=== PATIENT | male | born 1970 | race Caucasian/White ===

== ENCOUNTER 2019-06-11 19:08 | Emergency (ER) | payer BC, MEDICARE ==
[2019-06-11] MEDS ORDERED: Sodium Chloride 0.9% 1000 ML 1,000 ML IV STA (19:14)
[2019-06-11] MEDS ORDERED: NEXTERONE 360 MG/200 ML BAG 360 MG/200 ML PLAST..BAG IV SCH (19:15)
[2019-06-11] MEDS ORDERED: Sodium Chloride 0.9% 1000 ML 1,000 ML ONE ×2 (19:17→19:20)
[2019-06-11] MEDS ORDERED: NEXTERONE 360 MG/200 ML BAG 360 MG/200 ML PLAST..BAG IV ONE (19:25)
[2019-06-11 19:32] LABS: Hematocrit 48.5 % (42-50); Hemoglobin 15.7 gm/dl (12.5-18.0); Mean Cell Volume 90.7 fl (78-100); Mean Corpuscular Hemoglobin 29.3 pg (26-32); Mean Corpuscular Hgb Concent. 32.4 g/dl (32-36); Mean Platelet Volume 10.5 fl (6-9.5); Platelet Count 180 K/mm3 (150-450); Red Blood Count 5.35 M/mm3 (4.1-5.6); Red Cell Distribution Width 17.1 % (11.5-14.0); White Blood Count 13.8 K/mm3 (4.0-10.5)
[2019-06-11 19:52] LABS: ALBUMIN 4.3 g/dL (3.5-5.0); ANION GAP 20.4 MEQ/L (5-15); BILIRUBIN,TOTAL 1.1 mg/dL (0.2-1.3); Calcium 9.1 mg/dL (8.4-10.2); Creatinine 1 2.07 mg/dL (0.66-1.25); Potassium 4.5 mmol/L (3.5-5.1); Total Protein 7.6 g/dL (6.3-8.2)
[2019-06-11] MEDS ORDERED: Zosyn INJ 4.5 GM in D5w 100ML Mini Bag 100 ML 100 ML IV ONE (20:06)
[2019-06-11] MEDS ORDERED: Zosyn INJ IV ONE (20:11)
[2019-06-11] MEDS ORDERED: D5w 100ML Mini Bag 100 ML 100 ML IV ONE (20:11)
[2019-06-11] MEDS ORDERED: Vancomycin 1GM/ Ns 250ML*** 1 GM/250 ML IVPB IV SCH (20:15)
[2019-06-11 20:34] LABS: Amphetamine,Urine POSITIVE (NEGATIVE); Barbiturate,Urine NEGATIVE (NEGATIVE); Benzodiazepine,Urine NEGATIVE (NEGATIVE); Cocaine,Urine NEGATIVE (NEGATIVE); Methadone,Urine NEGATIVE (NEGATIVE); Opiate,Urine NEGATIVE (NEGATIVE); PCP,Urine NEGATIVE (NEGATIVE); THC,Urine NEGATIVE (NEGATIVE)
--- NOTE | 2019-06-11 21:27 | ERPHSYRPT ---
- History of Present Illness Source: patient, EMS Exam Limitations: clinical condition Patient Subjective Stated Complaint: pt was found on gronud unresponsive, amblulance stated he was in v tach with a pulse, pt had 2 sync, shocks and converted to afib with rvr and ths was givne cordarone 150mg, he arrived per ems , and states hes defib. did go offf Triage Nursing Assessment: pt alert, lundy in color, resp easy, skin cool and diaphoretic,he states he feels much better, chest chica, no edema, radial puulse bounding. has bilat 18 guage iv to upper arms. moves all ext well Physician History: Pt is a 48 y/o male with a h/o Cardiomyopathy of 15%, A fib on Eliquis, and AICD , that was found [place] near his house. EMS stated, pt was in VF, and was shocked x2, and converted to A fib with RVR. Pt got Amiodarone 150mg IV once, and IV AMio loading continued in the ED, as well as IVF. In the ER pt was alert and talking. Pt stated, was smoking meth prior to being found. He stated , did feel a shock from his AICD. Timing/Duration: today Activities at Onset: none Modifying Factors: Improves With: nothing Aspirin Treatment Today: 81 mg x 1 Associated Symptoms: fever, headaches Prior Chest Pain/Cardiac Workup: echocardiography, heart attack, stress test, recently seen/treated Allergies/Adverse Reactions: No Known Drug Allergies Allergy (Unverified 06/11/19 19:11) Home Medications: Amiodarone HCl 200 mg DAILY 06/11/19 [History] Lisinopril [Zestril] 10 mg DAILY 06/11/19 [History] Hx Tetanus, Diphtheria Vaccination/Date Given: No Hx Influenza Vaccination/Date Given: No Hx Pneumococcal Vaccination/Date Given: No Immunizations Up to Date: Yes - Review of Systems Constitutional: Fever, Malaise Eyes: No Symptoms Ears, Nose, & Throat: No Symptoms Respiratory: Cough, Dyspnea on Exertion (MANRIQUEZ) Cardiac: Palpitations, Orthopnea Genitourinary Symptoms: No Dysuria Musculoskeletal: No Back Pain, No Neck Pain Neurological: No Dizziness, No Focal Weakness, No Sensory Changes - Past Medical History Pertinent Past Medical History: Yes Cardiac History: Arrhythmia, Coronary Artery Disease, High Cholesterol, Hypertension Endocrine Medical History: Diabetes Type I, Diabetes Type II - Past Surgical History Past Surgical History: Yes Musculoskeletal: Orthopedic Surgery Other Surgical History: left knee - Social History Smoking Status: Never smoker Exposure to second hand smoke: No Drug Use: methamphetamines Patient Lives Alone: No - Nursing Vital Signs Nursing Vital Signs: Initial Vital Signs Pulse Rate 160 H 06/11/19 19:13 Respiratory Rate 22 06/11/19 19:13 Blood Pressure 87/63 06/11/19 19:13 O2 Sat by Pulse Oximetry 97 06/11/19 19:13 Pain Scale Pain Intensity 0 - Physical Exam General Appearance: moderate distress Eye Exam: PERRL/EOMI, eyes nml inspection Ears, Nose, Throat Exam: normal ENT inspection, moist mucous membranes Neck Exam: normal inspection, non-tender, supple Respiratory Exam: airway intact Cardiovascular Exam: tachycardia, irregular, edema Gastrointestinal/Abdomen Exam: soft, No tenderness, No mass Back Exam: normal inspection, No CVA tenderness, No vertebral tenderness Extremity Exam: normal inspection, normal range of motion Neurologic Exam: alert, oriented x 3, cooperative, normal mood/affect, nml cerebellar function, sensation nml, No motor deficits SpO2: 98 - Course Nursing assessment & vital signs reviewed: Yes EKG Interpreted by Me: RATE (138 bpm), Right Bundle Branch Block, Q-wave (in aVL , h/o PR) - Radiology Exams Chest X-ray Interpretation: Interpreted by me (cardiomegaly, fluid overload, b/l effusions) Ordered Tests: Active Orders 24 hr Category Date Time Status Cath for Specimen-Straight STAT Care 06/11/19 19:15 Active CHEST 1 VIEW (PORTABLE) Stat Exams 06/11/19 19:39 Taken HEAD WITHOUT CONTRAST [CT] Stat Exams 06/11/19 21:07 Ordered CBC W DIFF Stat Lab 06/11/19 19:25 Completed CK-Creatinine Phosphokinase Stat Lab 06/11/19 19:25 Completed CMP Stat Lab 06/11/19 19:25 Completed D-DIMER QUANTITATION Stat Lab 06/11/19 19:25 Completed Manual Differential NC Stat Lab 06/11/19 19:25 Completed NT PRO BNP Stat Lab 06/11/19 19:25 Completed TROPONIN Q3H Lab 06/11/19 19:25 Completed TROPONIN Q3H Lab 06/11/19 22:15 Ordered TROPONIN Q3H Lab 06/12/19 01:15 Ordered TROPONIN Q3H Lab 06/12/19 04:15 Ordered TROPONIN Q3H Lab 06/12/19 07:15 Ordered Urine Triage Profile Stat Lab 06/11/19 20:00 Completed Standby STAT RT 06/11/19 19:08 Completed Medication Summary Generic Name Dose Route Start Last Admin Trade Name Freq PRN Reason Stop Dose Admin Amiodarone HCl/Dextrose 360 mg in 200 mls @ 33 mls/hr 06/11/19 19:15 19:33 Nexterone 360 Mg/200 Ml Bag IV 07/11/19 19:14 33.3 ml/hr .Q6H4M RAOUL 33.3 mls/hr Administration Protocol Vancomycin HCl 1 gm in 250 mls @ 167 mls/hr 06/11/19 20:15 Vancomycin 1gm/ Ns 250ml IV 06/11/19 22:14 Q1H RAOUL Discontinued Medications Generic Name Dose Route Start Last Admin Trade Name Freq PRN Reason Stop Dose Admin Sodium Chloride 1,000 mls @ 999 mls/hr 06/11/19 19:14 06/11/19 19:25 Sodium Chloride 0.9% 1000 Ml IV 06/11/19 20:14 999 mls/hr .Q1H1M STA Administration Sodium Chloride Confirm 06/11/19 19:17 Sodium Chloride 0.9% 1000 Ml Administered 06/11/19 19:18 Dose 1,000 mls @ ud .ROUTE .STK-MED ONE Sodium Chloride Confirm 06/11/19 19:20 Sodium Chloride 0.9% 1000 Ml Administered 06/11/19 19:21 Dose 1,000 mls @ ud .ROUTE .STK-MED ONE Piperacillin Sod/Tazobactam 100 mls @ 200 mls/hr 06/11/19 20:06 06/11/19 20: 36 Sod 4.5 gm/ Dextrose IV 06/11/19 20:35 200 mls/hr STAT ONE Administration Dextrose Confirm 06/11/19 20:11 D5w 100ml Mini Bag 100 Ml Administered 06/11/19 20:12 Dose 100 mls @ ud IV .STK-MED ONE Piperacillin Sod/Tazobactam Sod Confirm 06/11/19 20:11 Zosyn Inj Administered 06/11/19 20:12 Dose 4.5 gm IV .STK-MED ONE Lab/Rad Data: Laboratory Result Diagrams 06/11/19 19:25 06/11/19 19:25 Laboratory Results 06/11/19 06/11/19 06/11/19 Range/Units 20:00 19:25 19:25 WBC (4.0-10.5) K/mm3 RBC (4.1-5.6) M/mm3 Hgb (12.5-18.0) gm/dl Hct (42-50) % MCV (78-100) fl MCH (26-32) pg MCHC (32-36) g/dl RDW (11.5-14.0) % Plt Count (150-450) K/mm3 MPV (6-9.5) fl D-Dimer 1064 H* (215-500) ng/mL Sodium (137-145) mmol/L Potassium (3.5-5.1) mmol/L Chloride (98-107) mmol/L Carbon Dioxide (22-30) mmol/L Anion Gap (5-15) MEQ/L BUN (9-20) mg/dL Creatinine (0.66-1.25) mg/dL Estimated GFR ML/MIN Glucose (74-106) mg/dL Calcium (8.4-10.2) mg/dL Total Bilirubin (0.2-1.3) mg/dL AST (17-59) U/L ALT (0-50) U/L Alkaline Phosphatase (38-126) U/L Creatine Kinase (55-170) U/L Troponin I 0.046 H* (0.000-0.034) ng/mL NT-Pro-B Natriuret Pep (0-450) pg/mL Serum Total Protein (6.3-8.2) g/dL Albumin (3.5-5.0) g/dL Urine Opiates Level NEGATIVE (NEGATIVE) Ur Methadone NEGATIVE (NEGATIVE) Urine Barbiturates NEGATIVE (NEGATIVE) Ur Phencyclidine (PCP) NEGATIVE (NEGATIVE) Urine Amphetamine POSITIVE (NEGATIVE) U Benzodiazepine Level NEGATIVE (NEGATIVE) Urine Cocaine NEGATIVE (NEGATIVE) Urine Marijuana (THC) NEGATIVE (NEGATIVE) 06/11/19 06/11/19 Range/Units 19:25 19:25 WBC 13.8 H (4.0-10.5) K/mm3 RBC 5.35 (4.1-5.6) M/mm3 Hgb 15.7 (12.5-18.0) gm/dl Hct 48.5 (42-50) % MCV 90.7 (78-100) fl MCH 29.3 (26-32) pg MCHC 32.4 (32-36) g/dl RDW 17.1 H (11.5-14.0) % Plt Count 180 (150-450) K/mm3 MPV 10.5 H (6-9.5) fl D-Dimer (215-500) ng/mL Sodium 143 (137-145) mmol/L Potassium 4.5 (3.5-5.1) mmol/L Chloride 106 (98-107) mmol/L Carbon Dioxide 21 L (22-30) mmol/L Anion Gap 20.4 H (5-15) MEQ/L BUN 35 H (9-20) mg/dL Creatinine 2.07 H (0.66-1.25) mg/dL Estimated GFR 36.6 ML/MIN Glucose 269 H (74-106) mg/dL Calcium 9.1 (8.4-10.2) mg/dL Total Bilirubin 1.10 (0.2-1.3) mg/dL AST 167 H (17-59) U/L ALT 157 H (0-50) U/L Alkaline Phosphatase 105 (38-126) U/L Creatine Kinase 99 (55-170) U/L Troponin I (0.000-0.034) ng/mL NT-Pro-B Natriuret Pep 1890 H (0-450) pg/mL Serum Total Protein 7.6 (6.3-8.2) g/dL Albumin 4.3 (3.5-5.0) g/dL Urine Opiates Level (NEGATIVE) Ur Methadone (NEGATIVE) Urine Barbiturates (NEGATIVE) Ur Phencyclidine (PCP) (NEGATIVE) Urine Amphetamine (NEGATIVE) U Benzodiazepine Level (NEGATIVE) Urine Cocaine (NEGATIVE) Urine Marijuana (THC) (NEGATIVE) - Progress Progress: improved Air Movement: fair Progress Note: 06/11/19 21:28 Pt was treated in the ED, and his Amio gtt loading continued. He got IVF in the ED, and BP stabilized. he is still in A fib with RVR. Pt had a fever and Zosyn and Vanco was given. Meth was positive in his urine. Pt has CINTIA with sCr of 2.0. [facility] was contacted, and pt was accepted to ICU, by Dr Juarez. Dr Hough, is pt's general manager food. Will see patient in: other (Transfer to [place] ICU) - Departure Departure Disposition: Transfer Clinical Impression: Ventricular fibrillation Condition: Stable Critical Care Time: Yes Critical Care Time(excluding separately billable procedures): Critical 30-74 mins Referrals: EDGAR CRAVEN [Primary Care Provider] - Additional Instructions: Pt to be transfered to ICU in [place]. Dr Juarez is accepting.
[2019-06-11] MEDS ORDERED: Vancomycin 1GM/ Ns 250ML*** 250 ML IV ONE (21:42)
[2019-06-11] MEDS ORDERED: Lasix 40 MG/4 ML ONE (21:46)
[2019-06-11] MEDS ORDERED: Lasix 40 MG/4 ML IV ONE (21:48)
[2019-06-11 22:07] VITALS: BP 151/92; PULSE 134; O2SAT 97
[2019-06-11 23:12] LABS: ANISOCYTOSIS 2+; ATYPICAL LYMPHS 1 %; Basophil 1 % (0.0-1.0); Eosinophil 2 % (0.00-3.0); Lymphocytes 19 % (24-44); Monocyte 5 % (0.0-12.0); Neutrophils 72 % (36.-66.); Platelet Estimate NORMAL (NORMAL); Poikilocytosis 1+; Total Cells Counted 100
--- NOTE | 2019-06-12 08:57 | XRAY ---
Indication: Loss of consciousness with fall following defibrillator malfunction. Multiple contiguous axial images obtained through the head without contrast. Comparison: None Ventriculosulcal pattern appears symmetric. No acute intracranial hemorrhage, abnormal extra-axial fluid collection, or mass effect. Fourth ventricle is midline without hydrocephalus. Berry-white matter differentiation preserved. Bony calvarium intact. Visualized paranasal sinuses and mastoid air cells are clear. Right temporal soft tissues demonstrates a few tiny air bubbles within a vessel. Impression: 1. No acute intracranial abnormalities. 2. Incidental right temporal air bubbles within a vessel of uncertain clinical significance. CT DI 50.26
--- NOTE | 2019-06-12 09:09 | XRAY ---
Indication: Wheezing. Comparison: None Portable apical lordotic chest demonstrates cardiomegaly with left-sided single lead pacemaker. Blunting of both costophrenic angles suggest tiny bibasilar pleural effusions/thickening. Remaining lungs demonstrate scattered calcified granulomas. No focal infiltrate or consolidation. Bony thorax demonstrates old right clavicle and old right rib fractures. Impression: 1. Cardiomegaly with tiny bibasilar pleural effusions/thickening. Rule out cardiac decompensation. 2. Evidence for old granulomatous disease.
== END 2019-06-11 22:25 | disposition short-term general hospital (02) ==
LOC: ED 19:08
DX: I49.01 Ventricular fibrillation (principal); Z79.01 Long term (current) use of anticoagulants
CPT/HCPCS: 51702; 70450; 80053; 80307; 82550; 83880; 84484; 85025; 85379; 94799; 96360; 96365; 96367; 96374; 99291; P9612; 36000; 36415; 71045; 99285; J1940; J2543; J3370